=== PATIENT | male | born 1990 | race Caucasian/White ===

== ENCOUNTER 2016-08-05 10:20 | Emergency (ER) | payer OTHER ==
[~2016-08-05 10:20] MED LIST: ALBUTEROL 0.5ML INH; ALBUTEROL MININEB INH; ALBUTEROL17 GM INH; LANSOPRAZOLE30 M2 PO; LOMOTIL WHITE2.5 MG PO; LORTAB 7.5-5001 TAB PO; PHENERGAN25 M1 PO; PREDNISONE PO; PREDNISONE10 MG PO; PROVENTIL INH0.5 ML HHN; SYMBICORT INH; SYMBICORT80 INH
[2016-08-05] MEDS ORDERED: [UNRECOGNIZED DRUG - REMARK] (10:27)
[2016-08-05] MEDS ORDERED: TRAMADOL PO (10:50)
[2016-08-05] MEDS ORDERED: DULERA INHALER (10:51)
== END 2016-08-05 10:54 | disposition home or self-care (01) ==
LOC: SED 10:20
DX: L23.7 Allergic contact dermatitis due to plants, except food (principal); J45.909 Unspecified asthma, uncomplicated; K50.90 Crohn's disease, unspecified, without complications; Z98.890 Other specified postprocedural states; Z91.040 Latex allergy status
CPT/HCPCS: 99282

== ENCOUNTER 2016-09-24 14:30 | Emergency (ER) | payer OTHER ==
--- NOTE | ~2016-09-24 | CR72 ---
[facility]. [facility] A Service of [facility] & [facility] RADIOLOGY TEXT RESULTS PATIENT: EVON OLIVEIRA LOCATION: SED : 88 UNIT #: [id number] AGE: [address]: Nafisa Vauhgan MD SEX: M ORDER DR: [id number] [place] [id number] E MR#: [id number] Acc #: [id number] NAME: EVON OLIVEIRA : 1990 SEX: M STUDY DATE/TIME: 09/24/2016 14:45 UNIT: SED ROOM: STUDY DESCRIPTION: CR Chest Single View Portable Attending Physician: Nafisa Vaughan M.D. Ordering Physician: Nafisa Vaughan M.D. Primary Care Physician: Da Chow M.D. MEDICAL IMAGING REPORT This report is preliminary unless electronic signature is present. EXAM Portable chest, 09/24/2016; [facility]. HISTORY 26-year-old male patient with cough past 4 days, congestion past 3-4 days. Short of breath. History of asthma. COMPARISON Chest, 05/05/2015. FINDINGS AP upright portable chest demonstrates normal stable heart size. Hilar structures are preserved. Lungs are mildly hyperinflated. There are no infiltrates. I see no effusion. IMPRESSION Generalized pulmonary hyperinflation. No acute chest finding. Dictated by... Howard Easley M.D. THIS IS AN ELECTRONICALLY VERIFIED REPORT Howard Easley M.D. at 09/27/2016 7:07 AM CHRIS/lee TD: 09/24/2016 17:46 JOB #: [id number] MEDICAL IMAGING REPORT Page 1 of 1
[~2016-09-24 14:30] MED LIST changes: +DULERA INHALER; +TRAMADOL PO; +[UNRECOGNIZED DRUG - REMARK]
== END 2016-09-24 15:54 | disposition home or self-care (01) ==
LOC: SED 14:30
DX: J45.901 Unspecified asthma with (acute) exacerbation (principal); J20.9 Acute bronchitis, unspecified; Z91.040 Latex allergy status
CPT/HCPCS: 71010; 94640; 99285; J2920

== ENCOUNTER 2016-10-15 19:50 | Emergency (ER) | payer OTHER ==
[~2016-10-15] VITALS: Ht 165.1 cm; Wt 81.6 kg
[2016-10-15] MEDS ORDERED: LORTAB 5-325 M1 EACH (20:00)
== END 2016-10-15 20:28 | disposition home or self-care (01) ==
LOC: SED 19:50
DX: K50.90 Crohn's disease, unspecified, without complications (principal); K52.9 Noninfective gastroenteritis and colitis, unspecified; Z91.040 Latex allergy status; Z79.899 Other long term (current) drug therapy
CPT/HCPCS: 99283